=== PATIENT | male | born 1965 | race Native Hawaiian/Other Pacific Islander ===

== ENCOUNTER 2016-08-06 10:45 | Day surgery (SDC) | payer OTHER ==
[2016-07-20 09:20] VITALS: BMI 27.1
[2016-08-06] MEDS ORDERED: Bupivacaine 0.5% Inj(30mL) ONE (11:48)
[2016-08-06] MEDS ORDERED: Lidocaine 1% Inj (20ml) ONE (11:49)
[2016-08-06] MEDS ORDERED: Midazolam 2 MG/2 ML VIAL ONE (12:02)
[2016-08-06] MEDS ORDERED: Propofol 10 mg/ml Inj (20 ML) ONE (12:02)
[2016-08-06] MEDS ORDERED: Lidocaine Hydrochloride 5 ML INJ ONE (12:03)
--- NOTE | 2016-08-06 12:36 | PCM.SURG1 ---
Surgeon's Initial Post Op Note - Surgeon's Notes Surgeon: Dr. Branch Doughnut Dough Mixer: Des, PGY-2 Type of Anesthesia: IV Sedation, Local Anesthesia Administered By: Dr. Rust Pre-Operative Diagnosis: Right foot- chronic Achilles tendonitis Operative Findings: See dictation. Hemostasis: no tourniquet necessary. Materials: 4-0 nylon; betadine-soaked 4x4 gauze, EDWARD bandage. Injectables: 20 cc 1:1 2% Lidocaine plain: 0.5% Marcaine plain Post-Operative Diagnosis: Same as above Operation Performed: Right foot- percutaneous tenotomy of the Achilles tendon Specimen/Specimens Removed: None Estimated Blood Loss: EBL {In ML}: 1 Blood Products Given: N/A Drains Used: No Drains Post-Op Condition: Good Date of Surgery/Procedure: 08/06/16 Time of Surgery/Procedure: 12:00
[2016-08-06] MEDS ORDERED: Oxycodone/Acetaminophen 5/325 mg Tab PO PRN ×2 (12:39)
[2016-08-06] MEDS ORDERED: HYDROmorphone 0.5 mg/0.5 ml ISec IVP PRN (12:43)
[2016-08-06] MEDS ORDERED: Lactated Ringer's 1,000 ML IV SCH (12:45)
[2016-08-06 14:21] VITALS: BP 130/62; PULSE 60; RESP 18; TEMP 98; O2SAT 98
--- NOTE | 2016-08-06 22:43 | OP ---
PROCEDURE DATE: 08/06/2016 SURGEON: Moo Branch DPM. OSTEOPATHIC NEUROLOGIST: Rodo Nunes DPM, PGY-2. MEDICAL CARE MANAGER: Dr. Rust. ANESTHESIA: IV sedation with local. PREOPERATIVE DIAGNOSIS: Right foot painful and chronic Achilles tendonitis. POSTOPERATIVE DIAGNOSIS: Right foot painful and chronic Achilles tendonitis. DESCRIPTION OF PROCEDURE: Right foot ultrasound-guided percutaneous tenotomy of the Achilles tendon. INDICATIONS: The patient is a 50-year-old male with the above diagnosis. The patient has exhausted conservative treatment at this time and now requests surgical intervention. The patient signed the consent after careful explanation of risks, benefits, complications, and alternatives for surgical procedure. No guarantees were given nor implied. The patient's n.p.o. status was confirmed prior to taking the patient to the OR. PREPARATION: The patient was brought to the operating room and placed on the operating room table in prone position. Timeout was performed by identification of the correct patient and the correct procedure. After induction of IV sedation, a total of 20 mL of a 1:1 mixture of 2% lidocaine plain and 0.5% Marcaine plain was injected into the right foot in local block fashion. Once local anesthesia was achieved, the right foot was then prepped and draped in the usual sterile manner and the procedure began. A tourniquet was not necessary for this procedure. PROCEDURE: A sterile sleeve was placed over the ultrasound transducer. A diagnostic ultrasound was performed. The anatomy was identified and the diseased thickened area was seen at both the medial and lateral aspects of the Achilles tendon, a #11 blade was then introduced to create a stab incision at the medial aspect of the Achilles tendon approximately 2 cm proximal to the calcaneal insertion. A straight hemostat was then used to create a tract down to the Achilles tendon. The TX1 handpiece was then introduced. Once the tip was located in the hypoechoic lesion, the foot pedal was pressed and the diseased portion of the tendon was debrided. A #11 blade was then introduced to create a stab incision at the lateral aspect of the Achilles tendon approximately 2 cm proximal to its calcaneal insertion. A straight hemostat was then used to create a tract down to the diseased tendon. Once the tip of the instrument was located in the hypoechoic lesion, the foot pedal was pressed and the diseased portion of the Achilles tendon was debrided. A #11 blade was then introduced to create a stab incision at the central aspect of the Achilles tendon approximately 4 cm proximal to its calcaneal insertion. A straight hemostat was then used to create a tract down to the Achilles tendon. The instrument was introduced and once the tip was located in the hypoechoic lesion, the foot pedal was pressed and the diseased portion of the Achilles tendon was debrided. At this time, all 3 surgical sites were irrigated with a copious amount of sterile normal saline. The skin at all 3 incision sites was now reapproximated and coapted using 4-0 nylon in a simple suture technique. The right foot was now dressed with Betadine soaked 4 x 4 gauze, dry 4 x 4 gauze, and an David bandage was then applied to the right foot. The attending, Dr. Branch, was present throughout the entire case. POSTOPERATIVE CONDITION: The patient tolerated the anesthesia and procedures well. There were no complications. The patient was escorted to the recovery room with vital signs stable and neurovascular status intact to the right foot. This patient was instructed to remain nonweightbearing to the right foot with a Cam walker and with the use of crutches. This patient is to follow up with Dr. Branch at his office on an outpatient basis. Rodo Nunes DPM Moo Branch DPM cc: [id number] TT: 08/06/2016 22:41:55 jn MTDD
== END 2016-08-06 14:26 | disposition home or self-care (01) ==
LOC: C.SDS 10:45
PROVIDERS: ATTEND Podiatrist Foot & Ankle Surgery
DX: M76.61 Achilles tendinitis, right leg (principal)